=== PATIENT | male | born 1935 | race Caucasian/White ===

== ENCOUNTER 2017-04-02 07:14 | Outpatient (CLI) | payer SELFPAY ==
[~2017-04-02 07:14] MED LIST: BENA20TA2 PO; CELE-193 PO; DUTA0.5C40 PO; FLO0.4C PO; LEVA15HF4 IH; METF500T PO; MONT10TA21 PO; MULT-342 PO; OMEG500C PO; OMEP-84 PO; oxygen
== END 2017-04-02 23:59 | disposition home or self-care (01) ==
LOC: VAS 07:14
DX: Z00.00 Encounter for general adult medical examination without abnormal findings (principal)